=== PATIENT | female | born 1995 | race Hispanic/Latino ===

== ENCOUNTER 2020-05-12 02:17 | Inpatient (IN) | payer SELFPAY ==
[2020-05-12 02:55] LABS: Absolute Lymphocytes (CBC) 3.3 K/uL (0.7-4.9); Basophils % 0.5 % (0-1.3); Hematocrit 36.8 % (36.0-45.0); Lymphocytes % 36.5 % (15.3-44.8); MPV 8.3 fL (7.6-11.3); RBC Red Blood Cell Count 4.29 M/uL (3.86-4.86)
[2020-05-12] MEDS ORDERED: NA CHLORIDE 0.9% 1,000 ML ONE (02:55)
[2020-05-12 03:06] LABS: ALT/SGPT 31 U/L (12-78); AST/SGOT 25 U/L (15-37); Albumin 3.7 g/dL (3.4-5.0); Alkaline Phosphatase 110 U/L (45-117); BUN Blood Urea Nitrogen 17 mg/dL (7-18); Bicarbonate 24 mmol/L (21-32); Bilirubin Direct 0.1 mg/dL (0-0.2); Bilirubin Total 0.3 mg/dL (0.2-1.0); Glucose Level 106 mg/dL (74-106); Lipase 335 U/L (73-393); Potassium 3.9 mmol/L (3.5-5.1); Protein, Total 8.1 g/dL (6.4-8.2); Sodium Level 139 mmol/L (136-145)
[2020-05-12] MEDS ORDERED: MAGNES/ALUMIN/SIMET 30ML UCUP ONE (03:24)
[2020-05-12] MEDS ORDERED: LIDOCAINE VISCOUS 2% SOLN 15 ML UDC ONE (03:25)
[2020-05-12] MEDS ORDERED: FAMOTIDINE 20 MG/2 ML VIAL IV ONE (03:25)
--- NOTE | 2020-05-12 04:49 | ER ---
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 Coronavirus screen: Client denies travel out of the [place] in the last 14 days. At this time, the client does not indicate any symptoms associated with coronavirus-19. Ebola Screen: Patient negative for fever greater than or equal to 101.5 degrees Fahrenheit, and additional compatible Ebola Virus Disease symptoms Patient denies exposure to infectious person. Patient denies travel to an Ebola-affected area in the 21 days before illness onset. No symptoms or risks identified at this time. Initial Sepsis Screen: Does the patient meet any 2 criteria? No. Patient's initial sepsis screen is negative. Does the patient have a suspected source of infection? No. Patient's initial sepsis screen is negative. Risk Assessment: Do you want to hurt yourself or someone else? Patient reports no desire to harm self or others. Onset of symptoms was May 12, 2020. Care prior to arrival: None. Mechanism of Injury: No Mechanism of Injury. Transition of care: patient was received from another setting of care (rehabilitation facility). 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 - Social history:: Smoking status: unknown. - Family history:: not pertinent. Screenin:25 Abuse screen: Denies threats or abuse. Denies injuries from another. Nutritional mg2 screening: No deficits noted. Tuberculosis screening: No symptoms or risk factors identified. 04:39 Fall Risk IV access (20 points). mg2 Assessment: 02:24 General: Appears uncomfortable, Behavior is calm, cooperative. Pain: Complains of pain mg2 in abdomen. Neuro: Level of Consciousness is awake, alert, obeys commands, Oriented to person, place, time, situation. Cardiovascular: Capillary refill < 3 seconds Patient's skin is warm and dry. Respiratory: Airway is patent Respiratory effort is even, unlabored, Respiratory pattern is regular, symmetrical. GI: Reports lower abdominal pain, upper abdominal pain. EENT: No signs and/or symptoms were reported regarding the EENT system. Derm: Skin is intact, is healthy with good turgor, Skin is pink, warm \T\ dry. normal. Musculoskeletal: Circulation, motion, and sensation intact. Capillary refill < 3 seconds. 04:30 Reassessment: Patient and/or family updated on plan of care and expected duration. Pain ll2 level reassessed. Patient is alert, oriented x 3, equal unlabored respirations, skin warm/dry/pink. Vital Signs: 02:25 BP 106 / 62; Pulse 81; Resp 18; Pulse Ox 100% on R/A; Weight 77.11 kg; Height 5 ft. 3 mg2 in. (160.02 cm); 02:34 Temp 98.7; mg2 04:10 BP 104 / 80; Pulse 53; Resp 17; Pulse Ox 100% on R/A; mg2 02:25 Body Mass Index 30.11 (77.11 kg, 160.02 cm) mg2 ED Course: 02:20 Patient arrived in ED. sg 02:20 Vernon Harper MD is Attending Physician. silvia 02:21 Gonzales Alvarado, DUYEN is Primary Nurse. mg2 02:23 Triage completed. sg 02:23 Arm band placed on. sg 02:25 Patient has correct armband on for positive identification. mg2 02:25 No provider procedures requiring assistance completed. mg2 03:06 Inserted MIDLINE, POWERGLIDE [id number] LEFT UPPER ARM. rv 03:46 CT Abd/Pelvis - IV Contrast Only In Process Unspecified. EDMS 04:47 Donnell Duque MD is Hospitalizing Provider. slivia 05:26 Patient admitted, IV remains in place. mg2 06:54 covid test sent to lab-in house. mg2 Administered Medications: 02:59 Drug: NS 0.9% 1000 ml Route: IV; Rate: 1 bolus; Site: left antecubital; mg2 05:29 Follow up: Response: No adverse reaction; IV Status: Completed infusion; IV Intake: mg2 1000ml 03:24 Drug: Pepcid 20 mg Route: IVP; Site: left upper arm; ll2 03:29 Follow up: Response: No adverse reaction ll2 03:24 Drug: GI Cocktail without - (Maalox Suspension 30 ml, Lidocaine Liquid 2 % 15 ll2 ml) Route: PO; 03:29 Follow up: Response: No adverse reaction ll2 04:57 Drug: Zosyn 3.375 grams Route: IVPB; Infused Over: 60 mins; Site: left upper arm; mg2 05:29 Follow up: IV Status: Infusion continued upon admission mg2 Intake: 05:29 IV: 1000ml; Total: 1000ml. mg2 Outcome: 04:48 Decision to Hospitalize by Provider. silvia 05:30 Admitted to Med/surg accompanied by tech, via wheelchair, room 214, with chart, Report mg2 called to DUYEN Schneider 05:30 Condition: stable 05:30 Instructed on the need for admit, Demonstrated understanding of instructions. 05:43 Patient left the ED. mg2 Signatures: Dispatcher [employer] EDMS Casimiro Arriaza RN RN sg Anderson, Corey, MD MD cha Gardose, Michele, RN RN mg2 Wenceslao Parks, DUYEN GELLER rv Alicia Anderson RN RN ll2 Corrections: (The following items were deleted from the chart) 05:26 02:25 BP 106 / 62; Pulse 93bpm; Resp 18bpm; Pulse Ox 100% RA; 77.11 kg; Height 5 ft. 3 mg2 in.; BMI: 30.1; mg2 05:26 04:10 BP 104 / 80; Pulse 49bpm; Resp 17bpm; Pulse Ox 100% RA; ll2 mg2
--- NOTE | 2020-05-12 04:49 | EDPHYS ---
Physician Documentation [facility] [place], [place] Name: Alyce Mcknight Age: 24 yrs Sex: Female : 1995 Arrival Date: 05/12/2020 Time: 02:20 Bed 20 Private MD: ED Physician Vernon Harper HPI: 05/12 03:05 This 24 yrs old Female presents to ER via EMS with complaints of right uq pain silvia and epigastric pain. 03:05 The patient presents with abdominal pain in the epigastric area. Onset: The silvia symptoms/episode began/occurred just prior to arrival. The symptoms do not radiate. Associated signs and symptoms: none. The symptoms are described as crampy, dull. Modifying factors: The symptoms are alleviated by nothing, the symptoms are aggravated by food. Severity of pain: At its worst the pain was moderate in the emergency department the pain is unchanged. The patient has experienced similar episodes in the past, multiple times. 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 - Social history:: Smoking status: unknown. - Family history:: not pertinent. ROS: 03:05 Constitutional: Negative for fever, chills, and weight loss, Eyes: Negative for injury, silvia pain, redness, and discharge, ENT: Negative for injury, pain, and discharge, Neck: Negative for injury, pain, and swelling, Cardiovascular: Negative for chest pain, palpitations, and edema, Respiratory: Negative for shortness of breath, cough, wheezing, and pleuritic chest pain, Back: Negative for injury and pain, : Negative for injury, bleeding, discharge, and swelling, MS/Extremity: Negative for injury and deformity, Skin: Negative for injury, rash, and discoloration, Neuro: Negative for headache, weakness, numbness, tingling, and seizure, Psych: Negative for depression, anxiety, suicide ideation, homicidal ideation, and hallucinations, Allergy/Immunology: Negative for hives, rash, and allergies, Endocrine: Negative for neck swelling, polydipsia, polyuria, polyphagia, and marked weight changes, Hematologic/Lymphatic: Negative for swollen nodes, abnormal bleeding, and unusual bruising. 03:05 Abdomen/GI: Positive for abdominal pain, nausea, vomiting. Exam: 03:05 Constitutional: This is a well developed, well nourished patient who is awake, alert, silvia and in no acute distress. Head/Face: Normocephalic, atraumatic. Eyes: Pupils equal round and reactive to light, extra-ocular motions intact. Lids and lashes normal. Conjunctiva and sclera are non-icteric and not injected. Cornea within normal limits. Periorbital areas with no swelling, redness, or edema. ENT: Nares patent. No nasal discharge, no septal abnormalities noted. Tympanic membranes are normal and external auditory canals are clear. Oropharynx with no redness, swelling, or masses, exudates, or evidence of obstruction, uvula midline. Mucous membranes moist. Neck: Trachea midline, no thyromegaly or masses palpated, and no cervical lymphadenopathy. Supple, full range of motion without nuchal rigidity, or vertebral point tenderness. No Meningismus. Chest/axilla: Normal chest wall appearance and motion. Nontender with no deformity. No lesions are appreciated. Cardiovascular: Regular rate and rhythm with a normal S1 and S2. No gallops, murmurs, or rubs. Normal PMI, no JVD. No pulse deficits. Respiratory: Lungs have equal breath sounds bilaterally, clear to auscultation and percussion. No rales, rhonchi or wheezes noted. No increased work of breathing, no retractions or nasal flaring. Back: No spinal tenderness. No costovertebral tenderness. Full range of motion. Female : Normal external genitalia. Skin: Warm, dry with normal turgor. Normal color with no rashes, no lesions, and no evidence of cellulitis. MS/ Extremity: Pulses equal, no cyanosis. Neurovascular intact. Full, normal range of motion. Neuro: Awake and alert, GCS 15, oriented to person, place, time, and situation. Cranial nerves II-XII grossly intact. Motor strength 5/5 in all extremities. Sensory grossly intact. Cerebellar exam normal. Normal gait. Psych: Awake, alert, with orientation to person, place and time. Behavior, mood, and affect are within normal limits. 03:05 Abdomen/GI: Inspection: abdomen appears normal, Bowel sounds: normal, Palpation: mild abdominal tenderness, moderate abdominal tenderness, in the epigastric area, right upper quadrant and left upper quadrant, Liver: no appreciated palpable abnormalities, Hernia: not appreciated. Vital Signs: 02:25 BP 106 / 62; Pulse 81; Resp 18; Pulse Ox 100% on R/A; Weight 77.11 kg; Height 5 ft. 3 mg2 in. (160.02 cm); 02:34 Temp 98.7; mg2 04:10 BP 104 / 80; Pulse 53; Resp 17; Pulse Ox 100% on R/A; mg2 02:25 Body Mass Index 30.11 (77.11 kg, 160.02 cm) mg2 MDM: 02:20 Patient medically screened. [facility] 03:09 Differential diagnosis: cholecystitis, Cholelithiasis, diverticulitis, gastritis, silvia gastroesophageal reflux disease, non-specific abd pain, pancreatitis, Peptic Ulcer Disease, Perf. Duodenal Ulcer, Pyelonephritis, urinary tract infection. Data reviewed: vital signs, nurses notes, lab test result(s), radiologic studies, CT scan. Data interpreted: playground monitor: rate is 93 beats/min, rhythm is regular. Counseling: I had a detailed discussion with the patient and/or guardian regarding: the historical points, exam findings, and any diagnostic results supporting the discharge/admit diagnosis, lab results, radiology results. 05/12 02:23 Order name: Basic Metabolic Panel; Complete Time: 04:04 [facility] 05/12 02:23 Order name: CBC with Diff; Complete Time: 03:04 [facility] 05/12 02:23 Order name: Hepatic Function; Complete Time: 04:04 [facility] 05/12 02:23 Order name: Lipase; Complete Time: 04:04 [facility] 05/12 02:23 Order name: UDS [facility] 05/12 03:56 Order name: CREATININE WHOLE BLOOD; Complete Time: 04:04 [facility] 05/12 02:23 Order name: CT Abd/Pelvis - IV Contrast Only [facility] 05/12 04:53 Order name: Test, Serum 05/12 04:53 Order name: Test Serum, Qualitat [facility] 05/12 04:58 Order name: Abdomen Exam Limited [facility] 05/12 05:26 Order name: Urine Dipstick--Ancillary (enter results) 05/12 05:26 Order name: Urine --Ancillary (enter results) 05/12 05:35 Order name: COVID-19 mg2 05/12 02:23 Order name: IV Saline Lock; Complete Time: 02:59 [facility] 05/12 02:23 Order name: Labs collected and sent; Complete Time: 02:42 [facility] 05/12 02:23 Order name: Urine Dipstick-Ancillary (obtain specimen); Complete Time: 05:30 [facility] 05/12 02:23 Order name: Urine Test (obtain specimen); Complete Time: 05:30 [facility] Administered Medications: 02:59 Drug: NS 0.9% 1000 ml Route: IV; Rate: 1 bolus; Site: left antecubital; mg2 05:29 Follow up: Response: No adverse reaction; IV Status: Completed infusion; IV Intake: mg2 1000ml 03:24 Drug: Pepcid 20 mg Route: IVP; Site: left upper arm; ll2 03:29 Follow up: Response: No adverse reaction ll2 03:24 Drug: GI Cocktail without - (Maalox Suspension 30 ml, Lidocaine Liquid 2 % 15 ll2 ml) Route: PO; 03:29 Follow up: Response: No adverse reaction ll2 04:57 Drug: Zosyn 3.375 grams Route: IVPB; Infused Over: 60 mins; Site: left upper arm; mg2 05:29 Follow up: IV Status: Infusion continued upon admission mg2 Disposition: 05/12/20 04:48 Hospitalization ordered by Donnell Duque for Observation. Preliminary diagnosis are Abdominal tenderness, Cholecystitis, Cholelithiasis. - Bed requested for Telemetry/MedSurg (observation). - Status is Observation. mg2 - Condition is Stable. - Problem is new. - Symptoms have improved. Signatures: Dispatcher [employer] EDVernon Landrum MD MD cha Garcia, Cindy, RN RN cg Gonzales Alvarado RN RN mg2 Alicia Anderson RN RN ll2 Corrections: (The following items were deleted from the chart) 04:57 04:48 Hospitalization Ordered by Donnell Duque MD for Observation. Preliminary cg diagnosis is Abdominal tenderness; Cholecystitis; Cholelithiasis. Bed requested for Telemetry/MedSurg (observation). Status is Observation. Condition is Stable. Problem is new. Symptoms have improved. [facility] 05:43 04:57 05/12/2020 04:48 Hospitalization Ordered by Donnell Duque MD for Observation. mg2 Preliminary diagnosis is Abdominal tenderness; Cholecystitis; Cholelithiasis. Bed requested for Telemetry/MedSurg (observation). Status is Observation. Condition is Stable. Problem is new. Symptoms have improved. cg
[2020-05-12] MEDS ORDERED: PIPER/TAZO/NS 3.375gm 3.375 GM/100 ML BAG ONE (05:06)
[2020-05-12 05:33] LABS: Urine Blood 2+ (NEG); Urine Glucose TRACE (NEG); Urine Protein NEGATIVE (NEG); Urine Specific Gravity 1.015 (1.005-1.030); Urine pH 5.5 (5.0-7.0)
[2020-05-12 05:42] LABS: Barbiturates NEGATIVE (NEGATIVE); Benzodiazepines NEGATIVE (NEGATIVE); Cocaine NEGATIVE (NEGATIVE); METHAMPHETAM NEGATIVE (NEGATIVE); Methadone NEGATIVE (NEGATIVE); Opiates NEGATIVE (NEGATIVE); Phencyclidine NEGATIVE (NEGATIVE); THC Cannibis NEGATIVE (NEGATIVE)
[2020-05-12] MEDS ORDERED: ACETAMINOPHEN 500 MG TAB PO PRN (05:43)
[2020-05-12] MEDS ORDERED: ONDANSETRON 4 MG/2 ML VIAL IV PRN (05:43)
[2020-05-12 06:04] VITALS: BMI 31.7
[2020-05-12] MEDS: D5 0.45 NS 1,000 ML IV SCH ×3 (06:16→21:43)
[2020-05-12] MEDS: FAMOTIDINE 20 MG/2 ML VIAL IV SCH ×2 (08:07→20:39)
[2020-05-12] MEDS: PIPER/TAZO/NS 3.375gm 3.375 GM/100 ML BAG IVPB SCH ×2 (11:50→20:39)
[2020-05-12] MEDS: MORPHINE 2 MG/ML SYR IV PRN ×3 (11:50→22:05)
--- NOTE | 2020-05-12 15:03 | RAD REPORT ---
EXAM DESCRIPTION: CT ABDOMEN AND PELVIS WITH CONTRAST CLINICAL HISTORY: ABD PAIN COMPARISON: None Available. TECHNIQUE: CT of the abdomen and pelvis performed following IV administration of . FINDINGS: Lung Bases: The visualized lung bases are clear. Bones: No destructive bone lesions identified. Abdomen: Liver: The liver has normal size and density. No intrahepatic biliary dilatation. Gallbladder: Mild wall thickening of the gallbladder. No calcified gallstones identified. Spleen, Pancreas, and Adrenal Glands: The spleen, pancreas, and adrenal glands are unremarkable. Kidneys: No hydronephrosis or obstructing calculus. Vasculature: The aorta and IVC have normal caliber and position. The portal vein is patent. The pro ximal visceral and renal arteries are patent. Stomach: The stomach and duodenum have normal course. Other: No free intraperitoneal air. No free fluid or lymphadenopathy. Pelvis: Bladder: Urinary bladder is unremarkable. Bowel: No dilated loops of large or small bowel. Appendix: Normal appendix. Pelvis: Uterus is not enlarged. IMPRESSION: 1. Mild wall thickening of the gallbladder. No gallstones identified. If there is concer n for biliary disease, right upper quadrant ultrasound may be helpful. This exam was performed according to our departmental dose-optimization program, which includes autom ated exposure control, adjustment of the mA and/or kV according to patient size and/or use of iterati ve reconstruction technique. Electronically signed by: Gerard Elena 05/12/2020 4:28 AM CDT Due to temporary technical issues with the PACS/Fluency reporting system, reports are being signed by the in house Radiologist without review as a courtesy to ensure prompt reporting. The interpreting r adiologist is fully responsible for the content of the report.
--- NOTE | 2020-05-12 15:43 | RAD REPORT ---
EXAM DESCRIPTION: US - Abdomen Exam Limited - 05/12/2020 3:33 pm CLINICAL HISTORY: gallstones Abdominal pain COMPARISON: Abdomen Pelvis W Contrast dated 05/12/2020 FINDINGS: The gallbladder demonstrates multiple small shadowing gallstones. Gallbladder wall is thic kened and mild pericholecystic fluid is seen. The common bile duct is normal measuring 4 mm. The liver demonstrates no findings of intrahepatic biliary dilatation. IMPRESSION: Early findings of acute cholecystitis suspected.
[2020-05-13] MEDS: D5 0.45 NS 1,000 ML IV SCH ×3 (02:18→13:43)
[2020-05-13] MEDS: PIPER/TAZO/NS 3.375gm 3.375 GM/100 ML BAG IVPB SCH ×2 (04:08→12:04)
[2020-05-13] MEDS: MORPHINE 2 MG/ML SYR IV PRN ×2 (04:30→10:07)
[2020-05-13 06:00] LABS: Absolute Lymphocytes (CBC) 2.8 K/uL (0.7-4.9); Hematocrit 34.3 % (36.0-45.0); Lymphocytes % 46.4 % (15.3-44.8); MPV 8.5 fL (7.6-11.3); RBC Red Blood Cell Count 4.03 M/uL (3.86-4.86)
[2020-05-13 06:04] LABS: ALT/SGPT 28 U/L (12-78); AST/SGOT 22 U/L (15-37); Alkaline Phosphatase 70 U/L (45-117); BUN Blood Urea Nitrogen 6 mg/dL (7-18); Bicarbonate 24 mmol/L (21-32); Bilirubin Direct 0.2 mg/dL (0-0.2); Bilirubin Total 0.6 mg/dL (0.2-1.0); Glucose Level 97 mg/dL (74-106); Lipase 303 U/L (73-393); Potassium 3.6 mmol/L (3.5-5.1); Protein, Total 7.1 g/dL (6.4-8.2); Sodium Level 142 mmol/L (136-145)
[2020-05-13 06:22] LABS: Blood Morphology Comment NOT SEEN (NOT SEEN); Platelet Estimate ADEQ
[2020-05-13] MEDS: FAMOTIDINE 20 MG/2 ML VIAL IV SCH (08:07)
--- NOTE | 2020-05-13 12:04 | HP ---
Date of Admission: 05/12/2020 Reason For Service: Epigastric right upper quadrant pain. History Of Present Illness: This is a case of a 24-year-old patient comes today to the ER complainin g of epigastric right upper quadrant pain radiating to the back associated with nausea and vomiting. The patient was in activity yesterday and she had some greasy food and then the pain developed. She states some episode like this before but not this severe. She denies any dysuria, hematuria, hemato chezia, melena. Denies any recent traveling out of the country, any family member sick at home. Past medical history no allergies. No medications. No surgeries. She does not smoke. She does not drink alcohol. Review of Systems: No shortness of breath. No fever. No chills. Ten points otherwise unremarkable. See H and P. Physical Examination: General: The patient is awake, alert. Pupils are equal and reactive, anicteric. Neck: Supple. Chest: Clear. Heart: S1, S2. Abdomen: Epigastric right upper quadrant pain. Linares sign positive. Breasts: Deferred. Pelvic: Deferred. Rectal: Deferred. Extremities: Good capillary refill. Neurologic: Cranial nerves 2 through 12 grossly normal limits. Laboratory Data: WBC count of 9.1, hemoglobin of 12.3, potassium 3.9. UA; negative. The patient had a CAT scan done showing mild wall thickening of the gallbladder. At this moment ultrasou nd result is still pending. Assessment: A 24-year-old patient with a right upper quadrant pain. Shows thickening of the gallbla dder. Ultrasound preliminary shows gallstones, waiting for the official result. If that is conclusi ve, then we offer her laparoscopic possible open cholecystectomy as one of the options with benefits, alternatives, and risks including, but not limited to infection, bleeding, damage to adjacent struct ures, anesthesia complication, choledocholithiasis, bile leak, pancreatitis, MO, and even . She also understands this may not relieve any symptoms. She might need more than one surgical intervent ion. She understand options also of the antibiotics and low-fat diet, but she wants to proceed with the gallbladder surgery. DAYNE/MASTER Voice ID: [id number]
[2020-05-13] MEDS ORDERED: Ringers Lactate 1,000 ML IV ONE (12:27)
[2020-05-13] MEDS ORDERED: CELECOXIB 100 MG CAPSULE PO ONE (12:45)
[2020-05-13] MEDS ORDERED: GABAPENTIN 100 MG CAP PO ONE (12:45)
[2020-05-13] MEDS ORDERED: ACETAMINOPHEN 500 MG TAB PO ONE (12:45)
[2020-05-13] MEDS ORDERED: FENTANYL CITR 100 MCG/2 ML ONE ×2 (13:05→15:09)
[2020-05-13] MEDS ORDERED: ROCURONIUM 50 MG/5 ML VIAL IV ONE (13:05)
[2020-05-13] MEDS ORDERED: ONDANSETRON 4 MG/2 ML VIAL ONE ×2 (13:05→15:08)
[2020-05-13] MEDS ORDERED: propofoL 200 MG/20 ML VIAL IV ONE (13:05)
[2020-05-13] MEDS ORDERED: LIDOCAINE 2% MPF 5 ML VIAL ONE (13:05)
[2020-05-13] MEDS ORDERED: dexAMETHasone 10 MG/ML VIAL ONE (13:35)
--- NOTE | 2020-05-13 13:53 | P.BOP ---
Preoperative diagnosis: acute cholecystitis, symptomatic cholelithiasis Postoperative diagnosis: same Primary procedure: Laparoscopic cholecystectomy Employee Communications Intern: Kayli Dias (Dylan) Estimated blood loss: <10cc Specimen: gb Findings: as above Anesthesia: General Complications: None Transferred to: Recovery Room Condition: Good
[2020-05-13] MEDS ORDERED: GLYCOPYRROLATE 0.2 MG/ML SYR ONE ×2 (13:54→14:04)
[2020-05-13] MEDS ORDERED: KETOROLAC 30 MG/ML INJ ONE (14:01)
[2020-05-13] MEDS ORDERED: HYDROCODONE/APAP 5/325 MG TAB PO PRN (14:06)
[2020-05-13] MEDS ORDERED: NEOSTIGMINE 1 MG/ML -5 ML ONE (14:06)
[2020-05-13 14:15] VITALS: O2SAT 100
--- NOTE | 2020-05-13 14:49 | OP ---
Date of Procedure: 05/13/2020 Surgeon: Donnell Duque MD Duplicating Machine Servicer: SUPRIYA Choe. Preoperative Diagnosis: Acute cholecystitis, symptomatic cholelithiasis. Postoperative Diagnosis: Acute cholecystitis, symptomatic cholelithiasis. Procedure: Laparoscopic cholecystectomy. Estimated Blood Loss: Less than 10 mL. Specimen: Gallbladder. Anesthesia: General plus local. Indications: This is the case of a 24-year-old patient, comes to us with acute cholecystitis, sympto matic cholelithiasis. Benefits, alternatives, and risks of laparoscopic possible open cholecystectom y fully explained, which include, but not limited to infection, bleeding, damage to adjacent structur es, anesthesia complication, choledocholithiasis, bile leak, pancreatitis, SD, and even . She a lso understands this may not relieve the symptoms. She might need more than one surgical interventio n. She understood, signed a consent. Procedure In Detail: The patient was brought to the operating room and placed in supine position. A nesthesia was done without complication. Abdominal area was prepped and draped in a sterile fashion. Marcaine 0.5% was injected for local anesthetic followed by sharp incision of the skin in the infra umbilical region. The incision was carried down to fascia, which was opened under direct vision. Pe ritoneum was encountered, opened under direct vision. Vicryl #1 was placed inside the fascia. Hasso n trocar was carefully introduced. Pneumoperitoneum was obtained. I placed 3 more trocars, 5 mm eac h one of them in the right upper quadrant under direct visualization. This allowed me to put a grasp er in the fundus of the gallbladder and another grasper in the infundibulum retracting the gallbladde r in the inferolateral fashion exposing the triangle of Calot and obtaining critical view. Cystic du ct and cystic artery were clearly isolated freed circumferentially and a connection between those and the gallbladder were clearly identified. I proceeded to ligate those by using at least 3 clips prox imal, 1 clip distal, ligation in the middle. Same was done with cystic artery. No bile leak. No bl eeding. The gallbladder was removed from liver using Bovie cauterizer and removed from abdominal cav ity using EndoCatch through the umbilical incision. The area was inspected once again. No bile leak . No bleeding. At that moment, I proceeded to remove the trocars under direct vision, deflated pneu moperitoneum, closed the fascia with #1 Vicryl. Irrigated subcutaneous tissue, closed that with 3-0 chromic, and skin in a subcuticular fashion with 3-0 chromic and Steri-Strips on top. Sponge count, instrument counts correct. The patient tolerated the procedure well. The patient was sent to recove ry in stable condition. This patient most likely will be discharged home. DAYNE/MASTER Voice ID: [id number] Report ID: [id number]
--- NOTE | 2020-05-13 14:52 | DS ---
Diagnosis: Acute cholecystitis, symptomatic cholelithiasis. Procedure: Laparoscopic cholecystectomy. Disposition: Home. Activity: As tolerated, no heavy lifting. Plan: Follow up in my office in 1 week. Call for appointment at [phone]. Keep area dry for 48 sunitha rs, then may shower. Keep Steri-Strip intact. Medications: Tylenol No. 3 q.4 hours p.r.n. pain, Bactrim DS p.o. b.i.d. DAYNE/MASTER Voice ID: [id number] Report ID: [id number]
[2020-05-13 16:49] VITALS: BP 137/71; TEMP 96.9
== END 2020-05-13 17:24 | disposition home or self-care (01) | DRG 419 ==
LOC: ER 02:17 → 2ND 04:50 → OBSVTOIN 09:01
PROVIDERS: ADMIT Surgery; ATTEND Surgery
PROC: 0FT44ZZ Resection of Gallbladder, Percutaneous Endoscopic Approach (ICD-10-PCS; principal; 2020-05-13 16:30)
DX: K80.00 Calculus of gallbladder with acute cholecystitis without obstruction (principal); Z20.828 Contact with and (suspected) exposure to other viral communicable diseases
CPT/HCPCS: 36415; 74177; 76705; 80048; 80076; 80307; 81003; 81025; 82565; 83690; 85025; 88304; 96361; 96365; 96375; 99285; G0378; J1100; J2270; J2405; J2543; J2704; J2710; J3010; J7030; J7120; J7799; Q9967; U0003